=== PATIENT | male | born 1985 | race Caucasian/White ===

== ENCOUNTER → 2019-03-08 | Outpatient (CLI) | payer BC ==
--- NOTE | 2019-03-08 15:35 | CT ---
EXAMINATION TYPE: CT sinus wo con DATE OF EXAM: 03/08/2019 COMPARISON: None HISTORY: Polyps CT DLP: [address] of the paranasal sinuses was performed in the axial and coronal planes. Bone and soft tissue settings are submitted. Moderate mucosal thickening noted to involve the ethmoid air cells and maxillary sinuses. Underlying polyposis is not excluded. The osteal meatal units are occluded bilaterally. The nasal septum is midline. No bony destructive changes are seen within the field of view. IMPRESSION: Moderate mucosal thickening ethmoid air cells and maxillary sinuses with obstruction of the ostiomeat al units bilaterally. Underlying polyposis difficult to exclude.
== END | disposition home or self-care (01) ==
LOC: RADCTMAIN 15:04
PROVIDERS: ATTEND Otolaryngology
DX: J34.89 Other specified disorders of nose and nasal sinuses (principal)
CPT/HCPCS: 70486